=== PATIENT | male | born 1965 | race Caucasian/White ===

== ENCOUNTER 2023-10-28 11:20 | Emergency (ER) | payer SELFPAY ==
--- NOTE | 2023-10-28 11:49 | PC.NURSE ---
1122- when pt asked if we could be able to do a ct scan since that is what he is wanting to have done to see if his ulcer has returned, we told him no we dont but we would be happy to see him for his abd pain, and then transfer to our local er if needed, and he said that he would just go to an er, and not have two seperate places to visit. pt was very understanding, and did thank us upon leaving to go to the er. pt left without being seen or triaged, or vitals and info gathered. amabulatory and stable.
== END 2023-10-28 11:49 | disposition left against medical advice (07) ==
PROVIDERS: Emergency Provider Registered Nurse
DX: Z53.21 Procedure and treatment not carried out due to patient leaving prior to being seen by health care provider (principal)
CPT/HCPCS: 99199